=== PATIENT | female | born 1940 | race Caucasian/White ===

== ENCOUNTER → 2022-04-10 13:10 | Outpatient (CLI) | payer MEDICARE, SELFPAY ==
[2022-04-10 15:53] LABS: COVID19 -Nasal RAPID Negative (Negative)
== END ==
PROVIDERS: PCP Internal Medicine; Visit Provider Surgery
DX: Z20.822 Contact with and (suspected) exposure to COVID-19 (principal); Z01.812 Encounter for preprocedural laboratory examination
CPT/HCPCS: 87635; C9803

== ENCOUNTER 2022-04-11 11:17 | Day surgery (SDC) | payer MEDICARE, SELFPAY ==
--- NOTE | 2022-04-11 | PATH_ITS ---
[place] Accession Number: [id number] No. of containers..01 Tissue . 01 Material submitted: . body - RANDOM . 01 Diagnosis: Random Colon, Biopsies: Colonic mucosa with no diagnostic abnormality. Negative for active, chronic, and microscopic colitis. Negative for dysplasia and malignancy. [facility] 04/14/2022 1052 Local . 01 Electronically signed: . Annalise Chavez MD, Pathologist NPI- [id number] . 01 Gross description: . RANDOM: Received in formalin are 2 fragment(s) of quiroz, soft tissue measuring 0.3 x 0.2 x 0.1 cm to 0.1 x 0.1 x 0.1 cm submitted entirely in 1 cassette(s) /CPE 04/12/2022 0623 Local . 01 Pathologist provided ICD-10: Z12.11 . 01 CPT . 601383 Specimen Comment: A courtesy copy of this report has been sent to [phone] Performed at: 01 [facility] [address] [place] [address], [place], [place] [id number] MD Willie Appiah MD Phone: [phone]
[2022-04-11 11:50] VITALS: BMI 19.7
[2022-04-11 12:06] VITALS: BP 140/66; PULSE 58; RESP 16; TEMP 36.6; O2SAT 100
--- NOTE | 2022-04-11 12:07 | PM.HP.1 ---
History of Present Illness History of Present Illness Date Patient Seen: 04/11/22 Time Patient Seen: 12:08 Chief complaint: SDC Narrative: The patient presents for colorectal screening. Personal history of colonic polyps, last colonoscopy was 5 years ago. No personal or family history of colon cancer. Over the past 1 year she is been having nearly constant diarrhea with increased urgency. No unintentional weight loss or blood per rectum. Patient History Family & Social History Social History: household members family,children Tobacco & Substance use: Smoking Status Former smoker alcohol intake current alcohol intake frequency holiday/special occasion Substance Use Type does not use Meds Home Medications and Allergies Home Medications Medication Instructions Recorded Confirmed Type No Known Home Medications 04/11/22 04/11/22 History Allergies Allergy/AdvReac Type Severity Reaction Status Date / Time Penicillins Allergy Severe Difficulty Verified 04/11/22 12:10 Breathing codeine [CODEINE] AdvReac Mild N/V Verified 04/11/22 12:10 propoxyphene AdvReac Mild DISORGANIZE Verified 04/11/22 12:10 [From [facility]OUND-65] D Sulfa (Sulfonamide AdvReac Mild N/V Verified 04/11/22 12:10 Antibiotics) [SULFA (SULFONAMIDE ANTIBIOTICS)] Exam Narrative Exam Narrative: General adult woman alert oriented no acute distress Abdomen soft nontender nondistended Assessment & Plan Assessment & Plan narrative: The patient requires colorectal screening and colonoscopy is recommended. Technical details were discussed. Risks, benefits, alternatives explained. Risks including but not limited to myocardial infarction, aspiration, bleeding, pain, missed lesion, incomplete examination, need for further radiographic studies, colonic perforation, and need for major abdominal surgery were discussed. All questions were answered to their satisfaction, and they are in agreement with this plan. Time Spent With Patient Critical Care time: I spent a total of [] minutes of critical care time on this patient's care today; this time is exclusive of procedural time.
[2022-04-11] MEDS: LACTATED RINGERS 1,000 ML 42 ML IV (12:11)
--- NOTE | 2022-04-11 12:40 | PM.OP.COLON ---
Operative Date/Time/Diagnoses Date of procedure: 04/11/22 Time of procedure: 12:41 Pre-op diagnosis: Personal history of colonic polyps Post-op diagnosis: same Procedure & Clinicians Study performed: Colonoscopy Same procedure as scheduled: Yes Indications: Personal history of colonic polyps. Colorectal screening Surgeon: Irvin Aguirre Procedure Notes Procedure in detail: The history and physical was performed/updated and the patient is ASA class is 2. The procedure was discussed in detail with the patient. Potential risks complications including infection, bleeding, missed diagnosis, perforation, need for surgery, and were explained. Their questions were answered and informed consent was obtained. Patient was brought to the procedure room and placed standard monitoring equipment. The patient's vital signs were monitored continuously throughout the entire procedure. Prior to starting time-out was performed. The patient was placed in the left lateral recumbent position. Procedural sedation was administered by anesthesia. Examination began with a thorough inspection of the perianal area there was no evidence of fissures, fistulae, external hemorrhoids or cutaneous malignancy. The colonoscopy scope was then placed into the anal canal and was advanced to the cecum, which was identified by widely patent ileocecal valve, the appendiceal orifice and the confluence of the taenia. Scope was slowly advanced into the terminal ileum for a short distance. The scope was then slowly withdrawn examining colon thoroughly in all directions, irrigating it of any residual stool. FINDINGS 1. No masses or polyps 2. No significant colitis The patient tolerated the procedure well. They will be discharged once criteria are met. The prep was of good/excellent quality. The withdrawl time was 7 minutes. Specimen(s): other (Random colonic biopsies) Impression: Normal colonoscopy Post-procedure Recommendations: High fiber diet Plan for aftercare: Will notify with biopsy resolved. No need for further colonoscopy. Disposition: same day surgery
[2022-04-11 13:16] VITALS: BP 106/64; PULSE 90; RESP 16; TEMP 36.7; O2SAT 95
[2022-04-11 13:19] VITALS: BP 105/64; PULSE 61; RESP 16; O2SAT 96
[2022-04-11 13:23] VITALS: BP 118/58; PULSE 85; RESP 15; O2SAT 94
[2022-04-11 14:16] VITALS: BP 155/76; PULSE 57; RESP 16; O2SAT 100
== END 2022-04-11 14:18 | disposition home or self-care (01) ==
PROVIDERS: PCP Internal Medicine; Referring Provider Surgery; Visit Provider Surgery
PROC: 0DJD8ZZ Inspection of Lower Intestinal Tract, Via Natural or Artificial Opening Endoscopic (ICD-10-PCS; CPT 45378; principal; 2022-04-11 11:45)
DX: Z12.11 Encounter for screening for malignant neoplasm of colon (principal); Z86.010 Personal history of colon polyps
CPT/HCPCS: G0105; C9803; J2704